=== PATIENT | female | born 1950 | race Caucasian/White ===

== ENCOUNTER → 2016-08-03 | Outpatient (CLI) | payer OTHER ==
[2016-08-03 12:29] LABS: BASO % 0.2 %; BASO ABS # 0.01 K/uL (0-0.2); COMPLETE YES; EOS % 0.2 %; HEMATOCRIT 36.4 % (37-47); IG% 0.2 %; LYMPH % 36.3 %; LYMPH ABS # 1.57 K/uL (1.2-3.4); MEAN CELL VOLUME 89.7 fL (80-100); MEAN CORPUSCULAR HEMOGLOBIN 29.8 pg (25-34); MEAN CORPUSCULAR HGB CONC 33.2 g/dl (32-36); MEAN PLATELET VOLUME 10.8 fL (7.4-10.4); MONO % 6.7 %; NEUT % 56.4 %; PLATELET COUNT 217 K/uL (130-400); RED BLOOD COUNT 4.06 M/uL (4.2-5.4); WHITE BLOOD COUNT 4.33 K/uL (4.8-10.8)
[2016-08-03 13:07] LABS: ALT/SGPT 23 U/L (12-78); BLOOD UREA NITROGEN 23 mg/dl (7-18); BUN/CREATININE RATIO 33.1 (10-20); CARBON DIOXIDE 28 mmol/L (21-32); CHLORIDE 105 mmol/L (98-107); CHOLESTEROL 147 mg/dl (0-200); CREATININE 0.68 mg/dl (0.60-1.20); GLUCOSE 78 mg/dl (70-99); SODIUM 140 mmol/L (136-145); TRIGLYCERIDES 102 mg/dl (0-150); VERY LOW DENSITY LIPOPROT CALC 20 mg/dl
[2016-08-03 13:17] LABS: ALB/GLOB RATIO 0.9 (0.9-2); ALKALINE PHOSPHATASE 63 U/L (45-117); AST/SGOT 17 U/L (15-37); CHOLESTEROL/HDL RATIO 2.6; HDL CHOLESTEROL 56 mg/dl; LDL CHOLESTEROL CALCULATED 71 mg/dl
[2016-08-03 13:32] LABS: CALCIUM 9.1 mg/dl (8.5-10.1)
== END | disposition home or self-care (01) ==
LOC: C.LABPBG 09:03
PROVIDERS: ATTEND Neuromusculoskeletal Medicine & OMM
DX: Z00.00 Encounter for general adult medical examination without abnormal findings (principal); Z11.59 Encounter for screening for other viral diseases

== ENCOUNTER → 2016-09-14 | Outpatient (CLI) | payer OTHER ==
[2016-09-14 16:48] LABS: URINE APPEARANCE CLEAR (CLEAR); URINE BILIRUBIN NEG (NEG); URINE COLOR YELLOW; URINE NITRITE NEG (NEG); URINE SPECIFIC GRAVITY 1.016 (1.000-1.030); UROBILINOGEN NEG (NEG)
[2016-09-14 16:51] LABS: MANUAL MICROSCOPIC REQUIRED? NO; REVIEW REQ? NO
== END | disposition home or self-care (01) ==
LOC: C.LABSPEC 14:44
PROVIDERS: ATTEND Neuromusculoskeletal Medicine & OMM
DX: R30.0 Dysuria (principal)